=== PATIENT | male | born 1950 | race Caucasian/White ===

== ENCOUNTER 2019-01-01 19:43 | Emergency (ER) | payer OTHER ==
[~2019-01-01] VITALS: Ht 180.3 cm; Wt 90.9 kg
[2019-01-01 19:44] VITALS: BP 150/97
[2019-01-01] MEDS ORDERED: ONDANSETRON 4 MG ORAL DISINTEGRATING TAB (Q0162 PER 1MG) PO ONE (20:00)
[2019-01-01] MEDS ORDERED: LIDOCAINE 2% MDV 20 ML VIAL SC ONE (22:45)
[2019-01-01] MEDS ORDERED: ADACEL/BOOSTRIX VACCINE (DIPHTH/PERTUSS/ACELL/TETANUS)0.5ML SYR (90715) IM ONE (23:30)
[2019-01-02] MEDS ORDERED: SILVER NITRATE APPLICATOR TOP ONE (01:45)
--- NOTE | 2019-01-02 01:55 | REP ---
Clinical: Trauma. Laceration. Technique: AP, lateral, bilateral oblique views of the left second digit. Findings: Soft tissue swelling and injury noted. Osseous structures demonstrate degenerative changes. No definite acute fracture is appreciated. Impression: Moderate arthritic degenerative changes. No definite acute fracture. Electronically Signed by Chuy Jacome MD 01/02/2019 01:45 A
[2019-01-02] MEDS ORDERED: KEFL500C17 PO ×2 (02:08→17:18)
[2019-01-02] MEDS ORDERED: CEPHALEXIN 500 MG CAP PO ONE (02:15)
[2019-01-02] MEDS ORDERED: [UNRECOGNIZED DRUG - CODE] XX (17:24)
[2019-01-02] MEDS ORDERED: RA S EXT (17:26)
== END 2019-01-02 02:21 | disposition home or self-care (01) ==
LOC: M ED 19:43
DX: S61.211A Laceration without foreign body of left index finger without damage to nail, initial encounter (principal); W26.8XXA Contact with other sharp object(s), not elsewhere classified, initial encounter; Y92.018 Other place in single-family (private) house as the place of occurrence of the external cause; Z87.891 Personal history of nicotine dependence
CPT/HCPCS: 12001; 73140; 90471; 90715; 99283; 99284; Q0162

== ENCOUNTER 2019-01-02 12:58 | Emergency (ER) | payer OTHER ==
[~2019-01-02] VITALS: Ht 180.3 cm; Wt 94.4 kg
[~2019-01-02 12:58] MED LIST: KEFL500C17 PO
[2019-01-02 16:23] VITALS: BP 136/78
[2019-01-02] MEDS ORDERED: KEFL500C17 PO (17:18)
[2019-01-02] MEDS ORDERED: [UNRECOGNIZED DRUG - CODE] XX (17:24)
[2019-01-02] MEDS ORDERED: RA S EXT (17:26)
--- NOTE | 2019-01-02 17:45 | CR ---
DATE OF CONSULTATION: 01/02/2019 REASON FOR CONSULTATION: Laceration of the left index finger. 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 He had a glove on his hand at the time. He presented last evening, apparently late in the evening, for care in the emergency room, where they irrigated the wound, partially sutured it. It was discussed with Dr. Moscoso to followup today in the office for ongoing management and care. There were apparently some problems with insurance coverage, and he ended up coming back to the emergency room, and I was called to come see him today back in the emergency room again. I have come to see him today after being cared once again by the emergency room staff, where they started doing irrigation, debridements, and dressing changes. He is an otherwise healthy male. He is on no medications. No allergies. He lives out on [facility]. He is here with his . REVIEW OF SYSTEMS: Health survey is otherwise unremarkable. PHYSICAL EXAMINATION: He is a healthy appearing male, alert and oriented. His temperature is 98. His blood pressure is 136/78, pulse of 72, respirations 18. HEENT exam is benign. His left upper extremity examination revealed a sutured wound dorsally over the proximal phalanx of the index finger, and then along the radial side there is an open irregular wound extending all the way out to the level of the DIP joint. He is able to fire the flexor digitorum profundus (FDP) and the flexor digitorum superficialis (FDS), and there is no extensor lag noted. Sensation volarly and dorsally was intact. There was no exposed joint or bone noted in the depths of the wound. Radiographs taken yesterday, 01/01/2019, show some mild arthritis but no fractures of that digit. IMPRESSION: Traumatic wound to the left index finger, relatively deep. It is not really repairable at this point. Patient would like to proceed with outpatient dressing change and management, and I think that is a very reasonable option. This should granulate in fine with appropriate sterile saline, wet-to-wet and/or wet-to-dry dressing changes three times a day. His tetanus has been updated last evening, and a prescription for Keflex has been given to take three times a day for the initial wound care. We are going to follow this up in 48 hours in our office to monitor the wound. I encouraged him to work on some general range of motion in the meantime. PROCEDURE: Today I applied a saline-soaked sterile gauze along the digit, overwrapped it with a dry sterile gauze, covered it with Surgilast mesh stocking to hold the dressing in place.
== END 2019-01-02 17:34 | disposition home or self-care (01) ==
LOC: M ED 12:58
DX: S61.211D Laceration without foreign body of left index finger without damage to nail, subsequent encounter (principal); W26.8XXD Contact with other sharp object(s), not elsewhere classified, subsequent encounter; Y92.018 Other place in single-family (private) house as the place of occurrence of the external cause